=== PATIENT | female | born 1960 ===

== ENCOUNTER 2019-01-15 17:31 | Emergency (ER) | payer SELFPAY ==
[2019-01-15 17:34] VITALS: BMI 26.4
[2019-01-15] MEDS ORDERED: DiphenhydrAMINE 50 mg/ml Inj ONE (17:46)
[2019-01-15] MEDS ORDERED: DiphenhydrAMINE 50 mg/ml Inj IVP STA (17:53)
--- NOTE | 2019-01-15 17:54 | C.PDOC ---
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 Denies any shortness of breath. 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) Current Symptoms Are (Timing): Still Present Context: Food Possible Cause: Food Associated Symptoms: Swelling, Itching Past Medical History Reviewed: Historical Data, Nursing Documentation, Vital Signs Vital Signs: Last Vital Signs Temp 98.5 F 01/15/19 17:34 Pulse 122 H 01/15/19 17:34 Resp 24 01/15/19 17:34 BP 143/119 H 01/15/19 17:34 Pulse Ox 96 01/15/19 17:34 - Medical History PMH: HTN Surgical History: Family History: States: No Known Family Hx - Social History Hx Alcohol Use: No Hx Substance Use: No - Immunization History Hx Tetanus Toxoid Vaccination: No Hx Influenza Vaccination: No Hx Pneumococcal Vaccination: No Review Of Systems Except As Marked, All Systems Reviewed And Found Negative. Skin: Positive for: Rash Physical Exam - Physical Exam Appears: Non-toxic, No Acute Distress Skin: Warm, Dry, Other (erythema to face) Head: Normacephalic Eye(s): bilateral: PERRL, EOMI, Other (boggy eyes ) Nose: Normal Oral Mucosa: Moist Tongue: Normal Appearing, No Swelling Lips: Normal Appearing, No Swelling Teeth: Normal Dentition Gingiva: Normal Appearing Throat: Normal Neck: Supple Chest: Symmetrical Cardiovascular: Rhythm Regular, No Murmur Respiratory: Normal Breath Sounds, No Rales, No Rhonchi, No Wheezing Gastrointestinal/Abdominal: Soft, No Tenderness Extremity: Bilateral: Atraumatic, Normal Color And Temperature, Normal ROM Neurological/Psych: Oriented x3, Normal Speech Gait: Steady ED Course And Treatment O2 Sat by Pulse Oximetry: 96 (RA) Pulse Ox Interpretation: Normal Medical Decision Making Medical Decision Making: Assessment: Allergic reaction Plan - Benadryl 50mg IVP - Pepcid 20mg IVP - Solumedrol 125MG IV 191 - patient states improvement. Swelling has improved. Will discharge home and follow up with pmd within 2 days. Disposition - Disposition Referrals: [facility] [Outside] Disposition: HOME/ ROUTINE Disposition Time: 19:21 Condition: STABLE Additional Instructions: follow up with your doctor within 2 days call to make an appointment take medications as prescribed return to ER if symptoms worsens or progress Prescriptions: DiphenhydrAMINE [Benadryl] 50 mg PO TID PRN #20 cap PRN Reason: Allergy Symptoms predniSONE [predniSONE Tab] 50 mg PO DAILY #4 tab Instructions: Lauren (DC) Forms: [employer] [facility] (Greenlandic), General Discharge Instructions - Clinical Impression Clinical Impression: Allergic urticaria - Scribe Statement The provider has reviewed the documentation as recorded by the Scribe Debbie Monreal All medical record entries made by the Elmoibe were at my direction and perso eben dictated by me. I have reviewed the chart and agree that the record accurately reflects my personal performance of the history, physical exam, medical decision making, and the department course for this patient. I have also personally directed, reviewed, and agree with the discharge instructions and disposition.
[2019-01-15 20:02] VITALS: BP 155/92; RESP 20
[2019-01-15 20:04] VITALS: PULSE 104; TEMP 97.8; O2SAT 95
== END 2019-01-15 20:04 | disposition home or self-care (01) ==
LOC: C.ER 17:31
DX: L50.0 Allergic urticaria (principal)
CPT/HCPCS: 96374; 96375; 99285; J1200; J2930